=== PATIENT | female | born 1960 | race Caucasian/White ===

== ENCOUNTER → 2018-03-22 | Outpatient (CLI) | payer OTHER | END | disposition home or self-care (01) | LOC: LAB 15:53 → LAB SHORT 15:53 | DX: N39.0 Urinary tract infection, site not specified (principal); R30.0 Dysuria; R31.9 Hematuria, unspecified | CPT/HCPCS: 87086 ==

== ENCOUNTER → 2022-02-02 | Outpatient (CLI) | payer OTHER | LOC: LAB 16:20 → LAB SHORT 16:20 | DX: N39.0 Urinary tract infection, site not specified (principal) | CPT/HCPCS: 87077; 87086; 87186 ==

== ENCOUNTER → 2023-09-10 | Outpatient (CLI) | payer OTHER | LOC: LAB SHORT 17:33 → LAB 17:33 | DX: R30.0 Dysuria (principal) | CPT/HCPCS: 87077; 87086; 87186 ==